=== PATIENT | female | born 1995 | race Caucasian/White ===

== ENCOUNTER 2019-12-08 10:12 | Emergency (ER) | payer OTHER ==
[~2019-12-08] VITALS: Ht 165.1 cm; Wt 63.5 kg
[~2019-12-08 10:12] MED LIST: ALBU-136 IH
[2019-12-08 10:21] VITALS: BP 111/71
[2019-12-08 10:30] VITALS: BP 105/68
--- NOTE | 2019-12-08 10:30 | NUR ---
PT C/O PRESSURE LIKE CHEST PAIN AT STERNAL AREA WITHOUT RADIATION THAT STARTED AROUND 2100 LAST NIGHT. DENIES SOB, NAUSEA, VOMITING, OR PAIN EXACERATED BY EXERTION. PT STATES THE PAIN GETS WORSE WHEN SHE LYING DOWN. SKIN IS PINK/WARM/DRY; AAOX4 WITH EVEN AND STEADY GAIT; LUNGS CLEAR BL; HR EVEN AND REGULAR; PT DENIES ANY FEVER,SOB, OR COUGH AT THIS TIME; NO DIAPHERASIS NOTICED. PATIENT STATES PAIN OF 10/10 AT THIS TIME; VSS; PATIENT POSITIONED FOR COMFORT; HOB ELEVATED; BEDRAILS UP X1; BED DOWN. ER MD MADE AWARE OF PT STATUS.
--- NOTE | 2019-12-08 11:31 | NUR ---
PT ELOPED FROM FACILITY. PT STATES "I HAVE A TO ATTEND."
== END 2019-12-08 11:31 | disposition left against medical advice (07) ==
LOC: MED 10:12
DX: R07.9 Chest pain, unspecified (principal); R06.02 Shortness of breath; J45.909 Unspecified asthma, uncomplicated; Z79.899 Other long term (current) drug therapy
CPT/HCPCS: 81002; 81025; 93005; 99283

== ENCOUNTER 2023-09-15 08:06 | Emergency (ER) | payer OTHER ==
[~2023-09-15] VITALS: Ht 167.6 cm; Wt 73.5 kg
[~2023-09-15 08:06] MED LIST changes: +ALBU-118 IH; -ALBU-136 IH
[2023-09-15 08:14] VITALS: BP 140/95; PULSE 94; RESP 20; TEMP 98.1; O2SAT 98
[2023-09-15] MEDS: BACITRACIN OINT 500 UNITS/GM PKT TP ONE (09:19)
[2023-09-15] MEDS: LIDOCAINE/EPI 1% 1:100000 20 ML VIAL INJ ONE (09:19)
[2023-09-15] MEDS: IBUPROFEN 600 MG TAB PO ONE (09:22)
[2023-09-15 09:26] VITALS: BP 140/95; PULSE 98; RESP 18; TEMP 98.1; O2SAT 98
== END 2023-09-15 09:26 | disposition home or self-care (01) ==
LOC: MED 08:06
DX: S01.111A Laceration without foreign body of right eyelid and periocular area, initial encounter (principal); J45.909 Unspecified asthma, uncomplicated; R03.0 Elevated blood-pressure reading, without diagnosis of hypertension; Z79.899 Other long term (current) drug therapy; W22.8XXA Striking against or struck by other objects, initial encounter; Y93.89 Activity, other specified; Y92.89 Other specified places as the place of occurrence of the external cause; Y99.8 Other external cause status
CPT/HCPCS: 12011; 90471; 90715; 99283; J2001